=== PATIENT | female | born 1985 ===

== ENCOUNTER 2022-11-30 17:09 | Emergency (ER) | payer OTHER, SELFPAY ==
[2022-11-30] VITALS (11 sets, daily range): BP systolic 102–133; BP diastolic 58–75; PULSE 63–102; RESP 16–54; TEMP 36.9; O2SAT 97–100; BMI 31.1
[2022-11-30 17:34] LABS: Add Manual Diff / Slide Review NO; Basophils Absolute Auto 100 /uL (0-100); Basophils Percent Auto 0.6 % (0-2); Eosinophils Absolute Auto 100 /uL (0-450); Eosinophils Percent Auto 1.2 % (2-4); Hematocrit 39.7 % (36-46); Hemoglobin 13.6 g/dL (12.0-16.0); Lymphocytes Absolute Auto 2200 /uL (1100-4500); Lymphocytes Percent Auto 24.4 % (25-40); Mean Corpuscular HGB Conc 34.3 % (30-36); Mean Corpuscular Volume 93.3 fL (80-100); Monocytes Absolute Auto 700 /uL (0-900); Monocytes Percent Auto 7.4 % (3-14); Neutrophils Absolute Auto 6000 /uL (1500-7000); Neutrophils Percent Auto 66.4 % (50-75); Platelet Count 226 X10^3/uL (150-400); Red Blood Cell Count 4.26 X10^6/uL (4.0-5.2); Red Cell Distribution Width 13.3 % (11.6-14.8)
[2022-11-30 17:51] LABS: Erythrocyte Sedimentation Rate 1 MM/HR (0-20)
[2022-11-30 18:00] LABS: Alanine Aminotransferase 14 IU/L (<35); Albumin 4.6 g/dL (3.5-5.0); Albumin Globulin Ratio 1.4 (1.0-2.8); Alkaline Phosphatase 51 U/L (38-126); Aspartate Aminotransferase 24 IU/L (14-36); BUN Creatinine Ratio 9.9 (6-22); Bilirubin Total 0.3 mg/dL (0.2-1.3); Blood Urea Nitrogen 7 mg/dL (7-17); C-Reactive Protein Quant < 0.5 mg/dL (<1.0); Calcium 9.8 mg/dL (8.4-10.2); Carbon Dioxide 25 mmol/L (22-32); Chloride 104 mmol/L (98-107); Estimated Glomerular Filt Rate > 60 mL/min (>60); Globulin 3.4 g/dL (1.7-4.1); Glucose 100 mg/dL (70-100); HEMOLYSIS < 15 (0-50); Lipase 58 U/L (23-300); Potassium 3.8 mmol/L (3.4-5.1); Sodium 138 mmol/L (137-145)
[2022-11-30 18:59] LABS: COVID19 -Nasal RAPID Negative (Negative)
[2022-11-30] MEDS: KETOROLAC 30 MG/ML VIAL 15 MG IV (19:45)
[2022-11-30] MEDS: SODIUM CHLORIDE 0.9% 1,000 ML 1000 ML IV (19:45)
[2022-11-30] MEDS: ONDANSETRON 4 MG/2 ML INJ IV (19:45)
[2022-11-30 20:21] LABS: Amorphous Sediment Urine 1+; Bacteria Urine Occasional (0-1); Culture Indicated Urine Cult Not Indicated; RBC Urine 0-1/HPF (0-5/HPF); Squamous Epithelial Cell Urine 0-1 /HPF (0-5/HPF); WBC Urine None Seen (0-5/HPF)
[2022-11-30 20:49] LABS: Creatine Kinase 41 U/L (30-135)
--- NOTE | 2022-11-30 23:19 | ED_ITS ---
HPI - General Adult General Chief complaint: Weakness Stated complaint: Pain, Groin pain Time Seen by Provider: 11/30/22 19:31 Source: patient Mode of arrival: Ambulatory History of Present Illness HPI narrative: 37-year-old female with no known medical issues, no daily medications. Patient states she often gets joint aches, discomfort and other issues. Patient describes some generalized weakness, joint pains in the elbows and groin hips and back. Been intermittent for 6 months. Most recently she started having night sweats this week. No fevers that she knows about otherwise no chest pain or shortness of breath. She is had nausea and vomiting intermittently states it secondary to pain and had significant increase in pain or new pain in her right upper quadrant radiating down into her back and flank. Patient states this is new and different from typical. She states she has chronic diarrhea that is intermittent with no bowel movements. Does not normally have any black or bloody stools. No dysuria urgency or frequency. Patient tried ibuprofen/Tylenol at home. She states she is had a septal surgery but denies any daily medications. No known medical issues otherwise. No known drug allergies. No tobacco, no alcohol, occasional CBD at night no other illicit or recreational drugs. Related Data Previous Rx's Medication Instructions Recorded famotidine 40 mg tablet (Pepcid) 40 mg PO DAILY #30 tabs 12/01/22 Allergies Allergy/AdvReac Type Severity Reaction Status Date / Time No Known Drug Allergies Allergy Verified 11/30/22 17:19 Review of Systems Review of Systems ROS Unobtainable: All systems reviewed & are unremarkable except as noted in HPI and below Patient History Social History Smoking Status: Former smoker Smoking Status: Former smoker alcohol intake frequency: a few times a week Substance Use Type: does not use Exam Narrative Exam Narrative: GENERAL: Alert and oriented x three, female in moderate distress. HEENT: Head normocephalic, atraumatic, EOMI, pupils reactive, face symmetric, moist mucous membranes NECK: Supple, full range of motion CARDIOVASCULAR: Regular rate and rhythm without murmurs, rubs or gallops. RESPIRATORY: Breath sounds equal bilaterally, no wheezes rales or rhonchi. ABDOMEN: Soft, right upper quadrant tenderness tender down to the right lower quadrant. Normoactive bowel sounds all 4 quadrants. No guarding or rebound, rigidity, no mass, no pulsatile bruit. : Mild right CVA tenderness BACK: No cervical, thoracic or lumbar vertebral point tenderness. Patient has normal range of motion. Patient's gait is [antalgic/normal]. Muscle strength is 5/5 in lower extremities, dorsalis pedis and tibialis pulses are 2+ and lower extremities. Sensation is intact in the lower extremities. EXTREMITIES: Normal range of motion, no clubbing or edema. Neurovascularly intact NEUROLOGICAL: Cranial nerves II through XII grossly intact. Moving all extremities SKIN: Warm, dry, no petechiae, no rashes or lesions noted on torso or elsewhere. Initial Vital Signs Initial Vital Signs: Vital Signs Temperature 98.4 F 11/30/22 17:13 Pulse Rate 102 H 11/30/22 17:13 Respiratory Rate 16 11/30/22 17:13 Blood Pressure 133/75 11/30/22 17:13 Pulse Oximetry 100 11/30/22 17:13 Oxygen Delivery Method Room Air 11/30/22 17:13 Course Orders Ordered: ED Orders 11/30/22 23:30 CT abdomen pelvis w con Stat Discontinued Medications Hydrocodone Bitart/Acetaminophen (Hydrocodone/Acet 5/325 Prepack) 1 bottle MISC SEEINSTR ONE Stop: 12/01/22 00:54 Last Admin: 12/01/22 01:06 Dose: 1 bottle Documented By: SIVAN Sodium Chloride (Normal Saline 0.9%) 1,000 mls @ 1,000 mls/hr IV BOLUS ONE Stop: 11/30/22 20:32 Last Infusion: 11/30/22 20:45 Dose: 0 mls/hr Documented By: Admin: 11/30/22 19:45 Dose: 1,000 mls/hr Documented By: SIVAN Ketorolac Tromethamine (Ketorolac 30 Mg/Ml Vial) 15 mg IV NOW ONE Stop: 11/30/22 19:34 Last Admin: 11/30/22 19:45 Dose: 15 mg Documented By: SIVAN Morphine Sulfate (Morphine 4 Mg/Ml Inj) 4 mg IV NOW ONE Stop: 11/30/22 23:31 Last Admin: 11/30/22 23:54 Dose: Not Given Documented By: VIRGIE Morphine Sulfate (Morphine 4 Mg/Ml Inj) 4 mg IV NOW ONE Stop: 11/30/22 23:33 Last Admin: 11/30/22 23:36 Dose: 4 mg Documented By: SIVAN Ondansetron HCl (Ondansetron 4 Mg Odt) 4 mg PO NOW PRN PRN Reason: Nausea And Vomiting Ondansetron HCl (Ondansetron 4 Mg/2 Ml Inj) 4 mg IV NOW PRN PRN Reason: Nausea And Vomiting Last Admin: 11/30/22 19:45 Dose: 4 mg Documented By: SIVAN Vital Signs Vital signs: Vital Signs - 8 hr 11/30/22 21:30 11/30/22 21:30 11/30/22 22:00 Temperature Pulse Rate 71 Respiratory Rate 29 H Blood Pressure 102/63 106/61 Pulse Oximetry 97 11/30/22 22:00 11/30/22 22:30 11/30/22 22:30 Temperature Pulse Rate 73 73 Respiratory Rate 54 H 25 H Blood Pressure 111/66 Pulse Oximetry 98 98 11/30/22 23:00 11/30/22 23:00 11/30/22 23:30 Temperature Pulse Rate 70 Respiratory Rate 16 Blood Pressure 107/58 L 130/67 Pulse Oximetry 98 11/30/22 23:30 11/30/22 23:50 11/30/22 23:50 Temperature Pulse Rate 77 73 Respiratory Rate 16 18 Blood Pressure 122/74 Pulse Oximetry 100 12/01/22 00:00 12/01/22 00:00 12/01/22 00:30 Temperature Pulse Rate 65 Respiratory Rate 25 H Blood Pressure 114/66 106/61 Pulse Oximetry 98 12/01/22 00:30 12/01/22 00:55 12/01/22 00:55 Temperature Pulse Rate 64 63 Respiratory Rate 13 22 Blood Pressure 115/63 Pulse Oximetry 98 98 12/01/22 01:07 Temperature 98.1 F Pulse Rate Respiratory Rate Blood Pressure Pulse Oximetry Medical Decision Making Lab Data 11/30/22 17:23 11/30/22 17:23 Labs: Lab Results 11/30/22 11/30/22 11/30/22 Range/Units 17:23 17:23 17:23 WBC 9.0 (4.5-11.0) X10^3/uL RBC 4.26 (4.0-5.2) X10^6/uL Hgb 13.6 (12.0-16.0) g/dL Hct 39.7 (36-46) % MCV 93.3 (80-100) fL MCH 32.0 (26-34) PG MCHC 34.3 (30-36) % RDW 13.3 (11.6-14.8) % Plt Count 226 (150-400) X10^3/uL Neut % (Auto) 66.4 (50-75) % Lymph % (Auto) 24.4 L (25-40) % [place] % (Auto) 7.4 (3-14) % Eos % (Auto) 1.2 L (2-4) % Baso % (Auto) 0.6 (0-2) % Neut # (Auto) 6000 (9770-7768) /uL Lymph # (Auto) 2200 (4212-3251) /uL [place] # (Auto) 700 (0-900) /uL Eos # (Auto) 100 (0-450) /uL Baso # (Auto) 100 (0-100) /uL ESR 1 (0-20) MM/HR Sodium 138 (137-145) mmol/L Potassium 3.8 (3.4-5.1) mmol/L Chloride 104 (98-107) mmol/L Carbon Dioxide 25 (22-32) mmol/L BUN 7 (7-17) mg/dL Creatinine 0.71 (0.52-1.04) mg/dL Estimated GFR > 60 (>60) mL/min BUN/Creatinine Ratio 9.9 (6-22) Glucose 100 (70-100) mg/dL Calcium 9.8 (8.4-10.2) mg/dL Total Bilirubin 0.3 (0.2-1.3) mg/dL AST 24 (14-36) IU/L ALT 14 (<35) IU/L Alkaline Phosphatase 51 (38-126) U/L Total Creatine Kinase (30-135) U/L C-Reactive Protein < 0.5 (<1.0) mg/dL Total Protein 8.0 (6.3-8.2) g/dL Albumin 4.6 (3.5-5.0) g/dL Globulin 3.4 (1.7-4.1) g/dL Albumin/Globulin Ratio 1.4 (1.0-2.8) Lipase 58 (23-300) U/L Urine RBC (0-5/HPF) Urine WBC (0-5/HPF) Ur Squamous Epith Cells (0-5/HPF) Amorphous Sediment Urine Bacteria (None) Ur Culture Indicated? SARS-CoV-2 (PCR) Negative (Negative) 11/30/22 11/30/22 Range/Units 17:23 19:35 WBC (4.5-11.0) X10^3/uL RBC (4.0-5.2) X10^6/uL Hgb (12.0-16.0) g/dL Hct (36-46) % MCV (80-100) fL MCH (26-34) PG MCHC (30-36) % RDW (11.6-14.8) % Plt Count (150-400) X10^3/uL Neut % (Auto) (50-75) % Lymph % (Auto) (25-40) % [place] % (Auto) (3-14) % Eos % (Auto) (2-4) % Baso % (Auto) (0-2) % Neut # (Auto) (1788-6399) /uL Lymph # (Auto) (3434-2917) /uL [place] # (Auto) (0-900) /uL Eos # (Auto) (0-450) /uL Baso # (Auto) (0-100) /uL ESR (0-20) MM/HR Sodium (137-145) mmol/L Potassium (3.4-5.1) mmol/L Chloride (98-107) mmol/L Carbon Dioxide (22-32) mmol/L BUN (7-17) mg/dL Creatinine (0.52-1.04) mg/dL Estimated GFR (>60) mL/min BUN/Creatinine Ratio (6-22) Glucose (70-100) mg/dL Calcium (8.4-10.2) mg/dL Total Bilirubin (0.2-1.3) mg/dL AST (14-36) IU/L ALT (<35) IU/L Alkaline Phosphatase (38-126) U/L Total Creatine Kinase 41 (30-135) U/L C-Reactive Protein (<1.0) mg/dL Total Protein (6.3-8.2) g/dL Albumin (3.5-5.0) g/dL Globulin (1.7-4.1) g/dL Albumin/Globulin Ratio (1.0-2.8) Lipase (23-300) U/L Urine RBC 0-1/hpf (0-5/HPF) Urine WBC None seen (0-5/HPF) Ur Squamous Epith Cells 0-1 /hpf (0-5/HPF) Amorphous Sediment 1+ Urine Bacteria Occasional (0-1) (None) Ur Culture Indicated? Cult not indicated SARS-CoV-2 (PCR) (Negative) Point of Care Testing Test Results Negative Urine Dip Bedside Urine Glucose Negative Bedside Urine Bilirubin - Negative Bedside Urine Ketone - Negative Urine Specific [place] 1.010 Bedside Urine Occult Blood + Bedside Urine pH 6.0 Bedside Urine Protein - Negative Bedside Urine Urobilinogen - Negative Bedside Urine Nitrite - Negative Bedside Urine Leukocytes - Negative Esterase Point of care testing: Point of Care Testing Test Results Negative Urine Dip Bedside Urine Glucose Negative Bedside Urine Bilirubin - Negative Bedside Urine Ketone - Negative Urine Specific [place] 1.010 Bedside Urine Occult Blood + Bedside Urine pH 6.0 Bedside Urine Protein - Negative Bedside Urine Urobilinogen - Negative Bedside Urine Nitrite - Negative Bedside Urine Leukocytes - Negative Esterase Imaging Data CT scan - abdomen/pelvis: Radiologist's Impression: Close Abdomen/Pelvis CT (Signed) Americo Loaiza - 11/30/22 Launch?[place] [address] CT Scan Report Signed Patient: Nicole Pastrana MR#: [id number] : 1985 Acct:[id number] Age/Sex: 37 / F Date of Service: 11/30/22 Loc: ED Accession Number: [id number] ?? Procedure: CT abdomen pelvis w con Ordering Provider: Judy Harris D.O. ROCEDURE:? CT ABDOMEN PELVIS W CON ? INDICATIONS:? r upper and lower quad pain, right flank pain, vomiting, silver ? TECHNIQUE:? After the administration of IV contrast, axial sections were acquired from the lung bases to the pubic symphysis.? Coronal and sagittal reformats were performed.? For radiation dose reduction, the following was used:? automated exposure control, adjustment of mA and/or kV according to patient size. ? COMPARISON:? None. ? FINDINGS:? Image quality:? Excellent.? ? Lung bases:? Unremarkable.? ? Heart:? Heart is normal in size. ? ? ABDOMEN: Liver:? No mass lesion. Gallbladder:? Within normal limits without calcified gallstones.? ? Biliary ducts:? No biliary ductal dilatation.? ? Pancreas:? Unremarkable.? ? Spleen:? Normal in size.? ? Adrenal Glands:? No adrenal nodules.? ? Kidneys and Ureters:? No hydronephrosis.? ? ? Stomach and Bowel:? Stomach, small bowel loops, and colon are normal in caliber and wall thickness.? Appendix is normal.? Peritoneum:? No abnormal intraperitoneal fluid.? No free air.? ? Ventral Wall: ? No hernia.? Abdominal Nodes:? No retroperitoneal or mesenteric adenopathy by size criteria.? Vessels:? Aorta and inferior vena cava are normal in size.? ? PELVIS: Pelvic Organs:? There is a peripherally enhancing cyst in the right ovary measuring up to 1.9 cm.? A small amount of endometrial fluid is present.? The findings are compatible with physiologic changes.? ? Bladder:? Unremarkable.? ? Pelvic Nodes: No enlarged lymph nodes.? Miscellaneous: No inguinal hernias are seen. ? ? ? Bones:? Visualized osseous structures demonstrate no suspicious focal lesions. ? IMPRESSION:? ? 1.? No definite acute intra-abdominal abnormality.? Specifically, no evidence of appendicitis or obstructive uropathy. ? 2. Peripherally enhancing cyst in the right ovary likely represents a physiologic cyst.? ? ? Dictated by: Americo Loaiza M.D. on 12/01/2022 at 0:15 ? ? Approved by: Americo Loaiza M.D. on 12/01/2022 at 0:18? MDM Narrative Medical decision making narrative: 37-year-old female who comes in with complaint of generalized body aches and pain but also right upper quadrant abdominal pain flank pain that radiates down towards the groin. Patient is tender on examination in the right upper quadrant and right lower quadrant. Labs overall were reassuring she also has some changes that sound like joint pain and maybe some autoimmune component. She does note a family history of Crohn's. Had a heart rate of 102 initially but vitals have been overall appropriate. Patient was quite uncomfortable had minimal improvement with Toradol and Zofran. Was given additional dose of pain medication based on physical exam CT abdomen pelvis was felt prudent to evaluate for gallbladder versus appendicitis versus colitis. This is read as negative there is a small ovarian cyst, no obvious free fluid but if there had been hemorrhagic cyst could potentially cause some of patient's pain. Patient appears much improved and ambulating with out issue in the department. Discussed with patient I would recommend follow up for EGD/colonoscopy and further workup with primary care. Discharge Plan Departure Patient Disposition: Home Clinical Impression: Abdominal pain, Ovarian cyst Instructions: DI for Abdominal Pain-Adult Activity Restrictions/Additional Instructions: Please follow-up with recheck with your physician, I would recommend either EGD or colonoscopy for follow-up if your symptoms are persisting and particularly in the right upper abdomen. 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 You may take pain medication 1-2 tablets every 6 hours as needed for pain. This medication can make you sleepy do not drive, perform hazardous activities or make any major decisions while taking it. This medication will make you constipated please take a stool softener once to twice daily until stools are soft and regular. Prescription sent to [facility] in [place]. Please return for fevers, persistent vomiting, passing out, new chest pain or shortness of breath, black or bloody stools, new difficulty with urination or other new or concerning changes. Prescriptions: New famotidine [Pepcid] 40 mg tablet 40 mg PO DAILY Qty: 30 0RF Stand Alone Forms: Patient Portal/API
--- NOTE | 2022-11-30 23:30 | DI.CT.S_ITS ---
P wall ROCEDURE: CT ABDOMEN PELVIS W CON INDICATIONS: r upper and lower quad pain, right flank pain, vomiting, silver TECHNIQUE: After the administration of IV contrast, axial sections were acquired from the lung bases to the pubic symphysis. Coronal and sagittal reformats were performed. For radiation dose reduction, the following was used: automated exposure control, adjustment of mA and/or kV according to patient size. COMPARISON: None. FINDINGS: Image quality: Excellent. Lung bases: Unremarkable. Heart: Heart is normal in size. ABDOMEN: Liver: No mass lesion. Gallbladder: Within normal limits without calcified gallstones. Biliary ducts: No biliary ductal dilatation. Pancreas: Unremarkable. Spleen: Normal in size. Adrenal Glands: No adrenal nodules. Kidneys and Ureters: No hydronephrosis. Stomach and Bowel: Stomach, small bowel loops, and colon are normal in caliber and wall thickness. Appendix is normal. Peritoneum: No abnormal intraperitoneal fluid. No free air. Ventral Wall: No hernia. Abdominal Nodes: No retroperitoneal or mesenteric adenopathy by size criteria. Vessels: Aorta and inferior vena cava are normal in size. PELVIS: Pelvic Organs: There is a peripherally enhancing cyst in the right ovary measuring up to 1.9 cm. A small amount of endometrial fluid is present. The findings are compatible with physiologic changes. Bladder: Unremarkable. Pelvic Nodes: No enlarged lymph nodes. Miscellaneous: No inguinal hernias are seen. Bones: Visualized osseous structures demonstrate no suspicious focal lesions. IMPRESSION: 1. No definite acute intra-abdominal abnormality. Specifically, no evidence of appendicitis or obstructive uropathy. 2. Peripherally enhancing cyst in the right ovary likely represents a physiologic cyst. Dictated by: Americo Loaiza M.D. on 12/01/2022 at 0:15 Approved by: Americo Loaiza M.D. on 12/01/2022 at 0:18
[2022-11-30] MEDS: MORPHINE 4 MG/ML INJ IV (23:36)
[2022-12-01] VITALS: BP 114/66; PULSE 65; RESP 25; O2SAT 98
[2022-12-01 00:30] VITALS: BP 106/61; PULSE 64; RESP 13; O2SAT 98
[2022-12-01 00:55] VITALS: BP 115/63; PULSE 63; RESP 22; O2SAT 98
[2022-12-01] MEDS: HYDROCODONE/ACET 5/325 PREPACK 1 BOTTLE MISC (01:06)
[2022-12-01 01:07] VITALS: TEMP 36.7
== END 2022-12-01 01:08 | disposition home or self-care (01) ==
PROVIDERS: Emergency Medicine; Emergency Provider Emergency Medicine
DX: N83.201 Unspecified ovarian cyst, right side (principal); R10.11 Right upper quadrant pain; Z20.822 Contact with and (suspected) exposure to COVID-19
CPT/HCPCS: 36415; 74177; 80053; 81003; 81015; 81025; 82550; 83690; 85025; 85651; 86140; 87635; 96361; 96374; 96375; 99284; C9803; J1885; J2270; J2405; Q9967